=== PATIENT | male | born 1995 | race American Indian/Alaskan Native ===

== ENCOUNTER 2017-05-20 20:47 | Emergency (ER) | payer SELFPAY ==
[2017-05-20 21:13] VITALS: BP 131/74
== END 2017-05-21 00:21 | disposition left against medical advice (07) ==
LOC: DL.ED 20:47
DX: Z53.21 Procedure and treatment not carried out due to patient leaving prior to being seen by health care provider (principal)

== ENCOUNTER 2019-10-14 12:44 | Emergency (ER) | payer OTHER ==
[2019-10-14 13:26] VITALS: BP 134/74; PULSE 91
[2019-10-14] MEDS ORDERED: Sodium Chloride 0.9% 10 ML Syringe FLUSH PRN (13:26)
[2019-10-14] MEDS ORDERED: Clindamycin Phosphate 900 MG in Sodium Chloride 0.9% 100 ML IV ONE (13:27)
[2019-10-14] MEDS ORDERED: Bacitracin Oint 1 GM U/D Packet TOP ONE (13:27)
[2019-10-14] MEDS ORDERED: Lidocaine 1% 30 ML SDV INJECT ONE (13:27)
--- NOTE | 2019-10-14 14:20 | EDM.PDOC ---
<Mya Maxwell - Last Filed: 10/14/19 14:22> ED HPI GENERAL MEDICAL PROBLEM - General Chief Complaint: Skin Complaint Stated Complaint: BOIL ON STOMACH AREA Time Seen by Provider: 10/14/19 13:55 Source of Information: Reports: Patient History Limitations: Reports: No Limitations - History of Present Illness INITIAL COMMENTS - FREE TEXT/NARRATIVE: Patient presents to the ED by private vehicle with concerns of an abscess on his midline suprapubic area. He states that he first started noticing this abscess a couple days ago when it was rubbing against a table at work. He has noted tenderness to the area and surrounding erythema. The patient denies any fevers. He denies any pain with urination, blood in the urine. Onset: Gradual, Unknown/Unsure Location: Reports: Abdomen (midline lower abdomen) Front/Back Body Image: 1 - Abscess to midline suprapubic area Quality: Reports: Sharp Severity: Moderate Improves with: Reports: None Worsens with: Reports: None Associated Symptoms: Reports: No Other Symptoms Suprapubic Pain Score (Numeric/FACES): 8 - Related Data Allergies Allergy/AdvReac Type Severity Reaction Status Date / Time amoxicillin Allergy Rash Verified 10/14/19 13:25 cephalexin monohydrate Allergy Rash Verified 10/14/19 13:25 [From Keflex] Home Meds: Home Meds . [Unable to Verify Home Med List] 10/14/19 [History] Past Medical History Cardiovascular History: Reports: Heart Murmur Musculoskeletal History: Reports: Fracture Endocrine/Metabolic History: Reports: Diabetes, Type II - Past Surgical History HEENT Surgical History: Reports: Tonsillectomy GI Surgical History: Reports: EGD Social & Family History - Tobacco Use Smoking Status *Q: Current Every Day Smoker Years of Tobacco use: 10 Packs/Tins Daily: 0.5 - Recreational Drug Use Recreational Drug Use: No ED ROS GENERAL - Review of Systems Review Of Systems: See Below Constitutional: Denies: Fever, Chills Endocrine: Denies: Fatigue GI/Abdominal: Reports: Abdominal Pain. Denies: Bloody Stool, Constipation, Diarrhea : Denies: Discharge, Dysuria, Hematuria, Pain Neurological: Denies: Dizziness ED EXAM, SKIN/RASH Exam: See Below Exam Limited By: No Limitations General Appearance: Alert, No Apparent Distress Head: Atraumatic, Normocephalic Respiratory/Chest: No Respiratory Distress, Lungs Clear, Normal Breath Sounds Cardiovascular: Normal Peripheral Pulses, Regular Rate, Rhythm, No Murmur GI/Abdominal: Normal Bowel Sounds, Soft, Non-Tender, Distended, Guarding (Male) Exam: Other (suprapubic abscess approximately 4X3 cm in size, approximately 10-12 cm of surrounding errythema) ED SKIN PROCEDURES - I&D Site: midline suprapubic Skin Prep: Providone-Iodine (Betadine), Sterile Drape Local Anesthesia: Lidocaine: 1% Plain Local Anesthetic Volume: Other (20cc) Area Incised With: 11 Blade Drainage: Purulent, Large Amount Probed to Break Up Loculations: Yes Packed With: 1/2 in. Iodoform Sterile Dressinx4(s) Complications: No Progress/Comments: Patient was draped in a sterile fashion. Skin was cleansed with providone iodine. A 3 cm incision was made down to the subcutaneous tissue. Loculations were broken up by undermining in all directions of the abscess. The abscess was tracked approximately 2 cm superior, 1/2 cm bilaterally and 1 cm inferior from the incision. Copious amounts of purulent, foul smelling fluid was extracted. The pocket was cleansed with 40 ccs normal saline. Iodoform gauze was packed into the wound and 4X4s were applied over the wound. Margins of surrounding erythema were marked with a marking pen. An additional 2X2 cm fluctuant errythematous area was noted on his right groin. This was not addressed but was marked with a marking pen. The patient tolerated the procedure well. Course - Vital Signs Last Recorded V/S: Last Vital Signs Temp 97.5 F 10/14/19 13:22 Pulse 91 10/14/19 13:22 Resp 16 10/14/19 13:22 BP 134/74 10/14/19 13:22 Pulse Ox 97 10/14/19 13:22 - Orders/Labs/Meds Orders: Active Orders 24 hr Category Date Time Status Peripheral IV Care [RC] . DIRECTED Care 10/14/19 13:27 Active CULTURE WOUND [RM] Stat Lab 10/14/19 14:10 Received Sodium Chloride 0.9% [Saline Flush] Med 10/14/19 13:26 Active 10 ml FLUSH ASDIRECTED PRN Vancomycin 1,500 mg Med 10/14/19 14:28 Active Sodium Chloride 0.9% [Normal Saline] 500 ml IV ONETIME Peripheral IV Insertion Adult [OM.PC] Stat Oth 10/14/19 13:26 Ordered Medication Orders Vancomycin HCl 1,500 mg/ (Sodium Chloride) 500 mls @ 333.333 mls/hr IV ONETIME ONE Stop: 10/14/19 15:57 Last Admin: 10/14/19 14:37 Dose: 333.333 mls/hr Sodium Chloride (Saline Flush) 10 ml FLUSH ASDIRECTED PRN PRN Reason: Keep Vein Open Last Admin: 10/14/19 13:40 Dose: 10 ml Labs: Laboratory Tests 10/14/19 Range/Units 13:37 WBC 12.0 H (5.0-10.0) 10^3/uL RBC 4.99 (4.6-6.2) 10^6/uL Hgb 15.2 (14.0-18.0) g/dL Hct 42.6 (40.0-54.0) % MCV 85.4 (80-100) fL MCH 30.5 (27.0-34.0) pg MCHC 35.7 H (33.0-35.0) g/dL Plt Count 249 (150-450) 10^3/uL Neut % (Auto) 69.3 (42.2-75.2) % Lymph % (Auto) 20.6 (20.5-50.1) % [place] % (Auto) 6.6 (2-8) % Eos % (Auto) 2.9 (1.0-3.0) % Baso % (Auto) 0.6 (0.0-1.0) % Meds: Medications Generic Name Dose Route Start Last Admin Trade Name Freq PRN Reason Stop Dose Admin Vancomycin HCl 1,500 mg/ 500 mls @ 333.333 mls/hr 10/14/19 14:28 10/14/19 14: 37 Sodium Chloride IV 10/14/19 15:57 333.333 mls/hr ONETIME ONE Administration Sodium Chloride 10 ml 10/14/19 13:26 10/14/19 13:40 Saline Flush FLUSH 10 ml ASDIRECTED PRN Administration Keep Vein Open Discontinued Medications Generic Name Dose Route Start Last Admin Trade Name Liliane PRN Reason Stop Dose Admin Bacitracin 1 dose 10/14/19 13:27 10/14/19 13:41 Bacitracin Oint 1 Gm TOP 10/14/19 13:28 1 dose ONETIME ONE Administration Clindamycin Phosphate 900 mg/ 106 mls @ 200 mls/hr 10/14/19 13:27 10/14/19 13 :41 Sodium Chloride IV 10/14/19 13:58 200 mls/hr ONETIME ONE Administration Lidocaine HCl 30 ml 10/14/19 13:27 10/14/19 13:40 Xylocaine-Mpf 1% INJECT 10/14/19 13:28 30 ml ONETIME ONE Administration Departure - Departure Time of Disposition: 16:20 Disposition: Home, Self-Care 01 Condition: Good Clinical Impression: Abscess Cellulitis Qualifiers: Site of cellulitis: trunk Site of cellulitis of trunk: groin Qualified Code(s) : L03.314 - Cellulitis of groin - Discharge Information *PRESCRIPTION DRUG MONITORING PROGRAM REVIEWED*: Not Applicable *COPY OF PRESCRIPTION DRUG MONITORING REPORT IN PATIENT LUPE: Not Applicable Instructions: Skin Abscess, Cellulitis, Adult, Wound Packing Forms: ED Department Discharge Additional Instructions: Rx: Clindamycin, Bactrim DS Remove gauze strip from wound each 24 hours and repack with provided gauze strip. Utilize q-tip to pack gauze into wound. Follow-up with primary care provider or at walk in clinic on 10/18/2019 for recheck. Return to the ED if you develop a fever, experience increased drainage from the wound. Sepsis Event Note - Evaluation Sepsis Screening Result: No Definite Risk - Focused Exam Vital Signs: Vital Signs Temp Pulse Resp BP Pulse Ox 10/14/19 13:22 97.5 F 91 16 134/74 97 Date Exam was Performed: 10/14/19 Time Exam was Performed: 14:22 - My Orders Last 24 Hours: My Active Orders 10/14/19 13:26 Sodium Chloride 0.9% [Saline Flush] 10 ml FLUSH ASDIRECTED PRN Peripheral IV Insertion Adult [OM.PC] Stat 10/14/19 13:27 Peripheral IV Care [RC] . DIRECTED 10/14/19 14:10 CULTURE WOUND [RM] Stat 10/14/19 14:28 Vancomycin 1,500 mg Sodium Chloride 0.9% [Normal Saline] 500 ml IV ONETIME - Assessment/Plan Last 24 Hours: My Active Orders 10/14/19 13:26 Sodium Chloride 0.9% [Saline Flush] 10 ml FLUSH ASDIRECTED PRN Peripheral IV Insertion Adult [OM.PC] Stat 10/14/19 13:27 Peripheral IV Care [RC] . DIRECTED 10/14/19 14:10 CULTURE WOUND [RM] Stat 10/14/19 14:28 Vancomycin 1,500 mg Sodium Chloride 0.9% [Normal Saline] 500 ml IV ONETIME <Stan Bledsoe - Last Filed: 10/14/19 14:55> Course - Re-Assessments/Exams Free Text/Narrative Re-Assessment/Exam: 10/14/19 14:54 I personally performed or re-performed the physical examination and medical decision making. I have verified all student documentation or findings, including history, physical exam and/or medical decision making. Sepsis Event Note - Focused Exam Date Exam was Performed: 10/14/19 Time Exam was Performed: 14:54
== END 2019-10-14 16:29 | disposition home or self-care (01) ==
LOC: DL.ED 12:44
DX: L02.214 Cutaneous abscess of groin (principal); L03.314 Cellulitis of groin; E11.9 Type 2 diabetes mellitus without complications; F17.210 Nicotine dependence, cigarettes, uncomplicated; Z98.890 Other specified postprocedural states; Z88.1 Allergy status to other antibiotic agents
CPT/HCPCS: 10061; 36415; 85025; 87070; 96365; 96367; 99283; J2001; J3370; J3490; J7040; J7050; 87077; 87186

== ENCOUNTER 2020-03-08 13:36 | Emergency (ER) | payer OTHER ==
[2020-03-08 13:47] VITALS: BP 145/89; PULSE 89
[2020-03-08 14:27] LABS: ANION GAP 14.6 mEq/L (7-13); CHLORIDE,CL 105 mmol/L (98-107); SODIUM,NA 141 mmol/L (136-145)
[2020-03-08] MEDS ORDERED: Acetaminophen 325 MG Tab PO ONE (14:52)
--- NOTE | 2020-03-08 14:59 | EDM.PDOC ---
ED HPI GENERAL MEDICAL PROBLEM - General Chief Complaint: Chest Pain Stated Complaint: [id number] Chest pains Time Seen by Provider: 03/08/20 14:53 Source of Information: Reports: Patient History Limitations: Reports: No Limitations - History of Present Illness INITIAL COMMENTS - FREE TEXT/NARRATIVE: This 24 yo male patient reports to the ED with left upper chest pain radiating to his left arm. The patient reports he has been having similar symptoms for the past 2 years, but also reports he has had different episodes of chest pain for his whole life. The patient reports he has been seen in [place] and [place]. The patient reports when he was seen in [place], he was told that he had a heart valve that was not closing appropriately. The patient reports no further assessment has been done. The patient states he has not taken anything medications for his current symptoms. Onset: Unknown/Unsure (2 years) Duration: Constant Location: Reports: Chest (left upper chest) Quality: Reports: Ache, Sharp Severity: Moderate Improves with: Reports: None Worsens with: Reports: None Context: Reports: Other Associated Symptoms: Reports: Chest Pain (left upper chest pain) Treatments CREDIT OFFICE MANAGER: Denies: Acetaminophen, NSAIDS - Related Data Allergies Allergy/AdvReac Type Severity Reaction Status Date / Time amoxicillin Allergy Rash Verified 03/08/20 13:47 cephalexin monohydrate Allergy Rash Verified 03/08/20 13:47 [From Keflex] Home Meds: Home Meds Escitalopram Oxalate 20 mg PO DAILY 03/08/20 [History] Methylphenidate HCl [Methylphenidate ER] 18 mg PO DAILY 03/08/20 [History] traZODone HCl [Trazodone HCl] 50 mg PO BEDTIME 03/08/20 [History] Past Medical History Cardiovascular History: Reports: Heart Murmur, Hypertension Genitourinary History: Reports: None Musculoskeletal History: Reports: Fracture Neurological History: Reports: None Psychiatric History: Reports: None Endocrine/Metabolic History: Reports: Diabetes, Type II Hematologic History: Reports: None Immunologic History: Reports: None Oncologic (Cancer) History: Reports: None - Past Surgical History HEENT Surgical History: Reports: Tonsillectomy GI Surgical History: Reports: EGD Social & Family History - Tobacco Use Smoking Status *Q: Current Every Day Smoker Years of Tobacco use: 5 Packs/Tins Daily: 1 - Caffeine Use Caffeine Use: Reports: Energy Drinks, Soda - Recreational Drug Use Recreational Drug Use: No ED ROS GENERAL - Review of Systems Review Of Systems: Comprehensive ROS is negative, except as noted in HPI. ED EXAM, GENERAL - Physical Exam Exam: See Below Exam Limited By: No Limitations General Appearance: Alert, WD/WN, Mild Distress Eye Exam: Bilateral Eye: EOMI, Normal Inspection, PERRL Ears: Normal External Exam, Normal Canal, Hearing Grossly Normal, Normal TMs Nose: Normal Inspection, Normal Mucosa, No Blood Throat/Mouth: Normal Inspection, Normal Lips, Normal Teeth, Normal Gums, Normal Oropharynx, Normal Voice, No Airway Compromise Head: Atraumatic, Normocephalic Neck: Normal Inspection, Supple, Non-Tender, Full Range of Motion Respiratory/Chest: No Respiratory Distress, Lungs Clear, Normal Breath Sounds, No Accessory Muscle Use, Chest Non-Tender Cardiovascular: Normal Peripheral Pulses, Regular Rate, Rhythm, No Edema, No Gallop, No JVD, No Murmur, No Rub GI/Abdominal: Normal Bowel Sounds, Soft, Non-Tender, No Organomegaly, No D istention, No Abnormal Bruit, No Mass (Male) Exam: Deferred Rectal (Males) Exam: Deferred Back Exam: Normal Inspection, Full Range of Motion, NT Extremities: Normal Inspection, Normal Range of Motion, Non-Tender, Normal Capillary Refill, No Pedal Edema Neurological: Alert, Oriented, CN II-XII Intact, Normal Cognition, Normal Gait, Normal Reflexes, No Motor/Sensory Deficits Psychiatric: Normal Affect, Normal Mood Skin Exam: Warm, Dry, Intact, Normal Color, No Rash Lymphatic: No Adenopathy Course - Vital Signs Last Recorded V/S: Last Vital Signs Temp 36.7 C 03/08/20 13:45 Pulse 89 03/08/20 13:45 Resp 24 H 03/08/20 13:45 BP 145/89 H 03/08/20 13:45 Pulse Ox 99 03/08/20 13:45 - Orders/Labs/Meds Orders: Active Orders 24 hr Category Date Time Status EKG Documentation Completion [RC] STAT Care 03/08/20 13:38 Ordered DRUG SCREEN URINE BIORAD [URCHEM] Stat Lab 03/08/20 13:38 Ordered UA RFX JOYA AND CULT IF INDIC [URIN] Urgent Lab 03/08/20 13:38 Ordered Acetaminophen [Tylenol] Med 03/08/20 14:52 Once 650 mg PO NOW ONE Labs: Laboratory Tests 03/08/20 03/08/20 Range/Units 13:55 13:55 WBC 11.4 H (5.0-10.0) 10^3/uL RBC 5.09 (4.6-6.2) 10^6/uL Hgb 15.5 (14.0-18.0) g/dL Hct 44.2 (40.0-54.0) % MCV 86.8 (80-100) fL MCH 30.5 (27.0-34.0) pg MCHC 35.1 H (33.0-35.0) g/dL Plt Count 310 (150-450) 10^3/uL Neut % (Auto) 69.8 (42.2-75.2) % Lymph % (Auto) 20.2 L (20.5-50.1) % [place] % (Auto) 4.7 (2-8) % Eos % (Auto) 4.2 H (1.0-3.0) % Baso % (Auto) 1.1 H (0.0-1.0) % Sodium 141 (136-145) mmol/L Potassium 3.6 (3.5-5.1) mmol/L Chloride 105 (98-107) mmol/L Carbon Dioxide 25 (21-32) mmol/L Anion Gap 14.6 H (7-13) mEq/L BUN 9 (7-18) mg/dL Creatinine 0.90 (0.70-1.30) mg/dL Est Cr Clr Drug Dosing 130.68 mL/min Estimated GFR (MDRD) > 60 BUN/Creatinine Ratio 10.0 (No establ ref range) Glucose 139 H (74-99) mg/dL Calcium 8.6 (8.5-10.1) mg/dL Total Bilirubin 0.4 (0.2-1.0) mg/dL AST 33 (15-37) U/L ALT 84 H (16-63) U/L Alkaline Phosphatase 85 (46-116) U/L Troponin I < 0.017 (0.000-0.056) ng/mL Total Protein 7.9 (6.4-8.2) g/dL Albumin 4.0 (3.4-5.0) g/dL Globulin 3.9 Albumin/Globulin Ratio 1.0 Departure - Departure Time of Disposition: 15:01 Disposition: Home, Self-Care 01 Condition: Fair Clinical Impression: Nonspecific chest pain Instructions: Nonspecific Chest Pain, Adult, [id number] Care Plan Goals: The patient was advised of the examination, lab and EKG results during the visit. The patient was given an oral dose of Tylenol during the visit. The patient was encouraged to follow-up with his primary care facility for continued evaluation and further management. The patient may take Tylenol as directed for temporary symptom relief. If the patient has any additional symptoms or concerns, the patient should either return to the emergency department or visit his primary care facility. Sepsis Event Note (ED) - Evaluation Sepsis Screening Result: No Definite Risk - Focused Exam Vital Signs: Vital Signs Temp Pulse Resp BP Pulse Ox 03/08/20 13:45 36.7 C 89 24 H 145/89 H 99 - My Orders Last 24 Hours: My Active Orders 03/08/20 13:38 EKG Documentation Completion [RC] STAT DRUG SCREEN URINE BIORAD [URCHEM] Stat UA RFX JOYA AND CULT IF INDIC [URIN] Urgent 03/08/20 14:52 Acetaminophen [Tylenol] 650 mg PO NOW ONE - Assessment/Plan Last 24 Hours: My Active Orders 03/08/20 13:38 EKG Documentation Completion [RC] STAT DRUG SCREEN URINE BIORAD [URCHEM] Stat UA RFX JOYA AND CULT IF INDIC [URIN] Urgent 03/08/20 14:52 Acetaminophen [Tylenol] 650 mg PO NOW ONE
== END 2020-03-08 15:13 | disposition home or self-care (01) ==
LOC: DL.ED 13:36
DX: R07.9 Chest pain, unspecified (principal); I10 Essential (primary) hypertension; E11.9 Type 2 diabetes mellitus without complications; F17.210 Nicotine dependence, cigarettes, uncomplicated; Z79.899 Other long term (current) drug therapy; Z88.1 Allergy status to other antibiotic agents
CPT/HCPCS: 36415; 80053; 82962; 84484; 85025; 93005; 99285; A9270; 99283

== ENCOUNTER 2022-12-02 01:09 | Emergency (ER) | payer BC, OTHER ==
[2022-12-02 01:26] VITALS: BP 150/99; PULSE 86
[2022-12-02] MEDS: Bupivacaine 0.25% 10 ML SDV INJECT ONE (01:28)
[2022-12-02] MEDS: Clindamycin HCl 150 MG Cap PO ONE (01:28)
== END 2022-12-02 02:09 | disposition home or self-care (01) ==
LOC: DL.ED 01:09
DX: K04.7 Periapical abscess without sinus (principal); K03.81 Cracked tooth; K02.9 Dental caries, unspecified; E11.9 Type 2 diabetes mellitus without complications; F17.210 Nicotine dependence, cigarettes, uncomplicated; E66.9 Obesity, unspecified; Z68.30 Body mass index [BMI] 30.0-30.9, adult; Z88.0 Allergy status to penicillin; Z88.1 Allergy status to other antibiotic agents; Z79.84 Long term (current) use of oral hypoglycemic drugs; Z79.899 Other long term (current) drug therapy
CPT/HCPCS: 99282; A9270-GY; J3490

== ENCOUNTER 2022-12-03 09:38 | Inpatient (IN) | payer BC ==
[2022-12-03] MEDS ORDERED: Sodium Chloride 0.9% 1,000 ML IV ONE (09:51)
[2022-12-03] MEDS ORDERED: VANCOmycin 1.5 GM/300 ML 1.5 GM in Premix Bag 1 BAG IV SCH (10:15)
[2022-12-03] MEDS ORDERED: VANCOmycin 1.5 GM/300 ML 1.5 GM in Premix Bag 1 BAG IV ONE (10:15)
[2022-12-03] MEDS: Sodium Chloride 0.9% 10 ML Syringe FLUSH PRN (10:26)
[2022-12-03] MEDS ORDERED: Magnesium Hydroxide 400 MG/5 ML Susp 30 ML Cup PO PRN (11:23)
[2022-12-03] MEDS ORDERED: HYDROmorphone 0.5 MG/0.5 ML Syringe IVPUSH PRN (11:23)
[2022-12-03] MEDS ORDERED: Polyethylene Glycol 3350 Powder 17 GM Packet PO PRN (11:23)
[2022-12-03] MEDS ORDERED: Ondansetron 4 MG/2 ML SDV IVPUSH PRN (11:23)
[2022-12-03] MEDS ORDERED: Albuterol/Ipratropium 3.0-0.5 MG/3 ML Neb Soln NEB PRN (11:23)
[2022-12-03] MEDS ORDERED: Acetaminophen 325 MG Tab PO PRN (11:23)
[2022-12-03] MEDS ORDERED: Acetaminophen/HYDROcodone 325-5 MG Tab PO PRN (11:23)
[2022-12-03] MEDS ORDERED: Glucagon,Human Recombinant 1 MG Vial IM PRN (11:33)
[2022-12-03] MEDS ORDERED: 50% Dextrose in Water 50 ML Syringe IVPUSH PRN (11:33)
[2022-12-03] MEDS ORDERED: hydrALAZINE 20 MG/ML SDV IVPUSH PRN (11:35)
[2022-12-03] MEDS ORDERED: Famotidine 20 MG/2 ML SDV IVPUSH ONE (12:00)
[2022-12-03] MEDS ORDERED: Dexamethasone 4 MG/ML SDV IVPUSH ONE (12:00)
[2022-12-03] MEDS ORDERED: diphenhydrAMINE 50 MG/ML SDV IVPUSH ONE (12:00)
[2022-12-03] MEDS: Insulin Lispro 100 Units/ML 3 ML Vial SUBCUT SCH ×2 (12:10→17:03)
[2022-12-03] MEDS: Clindamycin in 0.9 % Sod Chlor 900 MG in Premix Bag 1 BAG IV SCH ×6 (12:10→23:41)
[2022-12-03] MEDS ORDERED: cefTRIAXone 2 GM Vial IVPUSH ONE (14:00)
[2022-12-03] MEDS: Ketorolac 30 MG/ML SDV IVPUSH PRN (14:12)
[2022-12-03] MEDS: Naproxen 250 MG Tab PO SCH (20:24)
[2022-12-03] MEDS ORDERED: Non-Formulary Medication 1 Each PO SCH (21:00)
[2022-12-03] MEDS ORDERED: Temazepam 15 MG Cap PO PRN (21:00)
[2022-12-04] MEDS: Clindamycin in 0.9 % Sod Chlor 900 MG in Premix Bag 1 BAG IV SCH ×6 (05:47→18:08)
[2022-12-04 07:48] LABS: ANION GAP 11.7 mEq/L (7-13)
[2022-12-04 08:54] LABS: HEMOGLOBIN A1C 7.4 % (<5.7)
[2022-12-04] MEDS: Naproxen 250 MG Tab PO SCH ×2 (08:59→21:21)
[2022-12-04] MEDS: Multivitamin Tab PO SCH (08:59)
[2022-12-04] MEDS: Insulin Lispro 100 Units/ML 3 ML Vial SUBCUT SCH ×3 (09:00→17:41)
[2022-12-04] MEDS: Losartan 25 MG Tab PO SCH (09:00)
[2022-12-04] MEDS: cefTRIAXone 2 GM Vial IVPUSH SCH (09:01)
[2022-12-04] MEDS: Ketorolac 30 MG/ML SDV IVPUSH PRN ×2 (09:14→17:47)
[2022-12-04] MEDS ORDERED: Saccharomyces Boulardii (Probiotic) 250 MG Cap PO ONE (12:00)
[2022-12-04] MEDS: Sodium Chloride 0.9% 10 ML Syringe FLUSH PRN ×2 (17:46→17:51)
[2022-12-04] MEDS ORDERED: oxyCODONE ER 20 MG TAB.ER PO ONE (17:58)
[2022-12-04] MEDS ORDERED: Dexamethasone 4 MG Tab PO ONE (21:00)
[2022-12-04] MEDS: Saccharomyces Boulardii (Probiotic) 250 MG Cap PO SCH (21:21)
[2022-12-04] MEDS: Famotidine 20 MG Tab PO SCH (21:21)
[2022-12-05] MEDS: Ketorolac 30 MG/ML SDV IVPUSH PRN ×3 (00:13→15:00)
[2022-12-05] MEDS: Clindamycin in 0.9 % Sod Chlor 900 MG in Premix Bag 1 BAG IV SCH ×6 (00:14→11:47)
[2022-12-05] MEDS: Insulin Lispro 100 Units/ML 3 ML Vial SUBCUT SCH ×2 (07:53→11:51)
[2022-12-05] MEDS: Famotidine 20 MG Tab PO SCH (08:01)
[2022-12-05] MEDS: Multivitamin Tab PO SCH (08:02)
[2022-12-05] MEDS: Losartan 25 MG Tab PO SCH (08:02)
[2022-12-05] MEDS: Saccharomyces Boulardii (Probiotic) 250 MG Cap PO SCH (08:02)
[2022-12-05] MEDS: Naproxen 250 MG Tab PO SCH (08:02)
[2022-12-05] MEDS: cefTRIAXone 2 GM Vial IVPUSH SCH (08:04)
[2022-12-05] MEDS ORDERED: Iopamidol 612 MG/ML 100 ML Bottle IVPUSH ONE (11:31)
[2022-12-05 11:48] VITALS: BP 128/78; PULSE 80
[2022-12-05] MEDS ORDERED: oxyCODONE ER 20 MG TAB.ER PO ONE (14:55)
== END 2022-12-05 15:18 | DRG 383 ==
LOC: DL.ED 09:38 → DL.MS 10:50 → UNDOADMIN 11:02 → DL.MS 11:02
PROVIDERS: ADMIT Internal Medicine; ATTEND Internal Medicine
DX: L03.211 Cellulitis of face (principal); I10 Essential (primary) hypertension; F41.9 Anxiety disorder, unspecified; F32.A Depression, unspecified; F90.9 Attention-deficit hyperactivity disorder, unspecified type; E66.9 Obesity, unspecified; E11.9 Type 2 diabetes mellitus without complications; F17.210 Nicotine dependence, cigarettes, uncomplicated; H05.012 Cellulitis of left orbit; M27.2 Inflammatory conditions of jaws; K04.7 Periapical abscess without sinus; H91.90 Unspecified hearing loss, unspecified ear; E11.65 Type 2 diabetes mellitus with hyperglycemia; Z88.0 Allergy status to penicillin; Z68.37 Body mass index [BMI] 37.0-37.9, adult; Z91.011 Allergy to milk products
CPT/HCPCS: 36415; 70486; 70487; 80053; 82947; 83036; 83605; 83735; 84145; 85025; 86140; 87040; 99284; A9270-GY; J0696; J1100; J1200; J1815-GY; J1885; J2405; J3370; J3490; J7030; J8540; Q9967

== ENCOUNTER 2023-09-02 18:09 | Emergency (ER) | payer BC, OTHER ==
[2023-09-02] MEDS ORDERED: Sodium Chloride 0.9% 10 ML Syringe FLUSH PRN (18:12)
[2023-09-02 18:29] VITALS: BP 132/75; PULSE 80
[2023-09-02 18:29] LABS: BASOPHILS PERCENT AUTO 0.6 % (0.0-1.0); EOSINOPHILS PERCENT AUTO 4.1 % (1.0-3.0); HEMATOCRIT 41.2 % (40.0-54.0); HEMOGLOBIN 14.3 g/dL (14.0-18.0); LYMPHOCYTES PERCENT AUTO 31.8 % (20.5-50.1); MEAN CORPUSCULAR HEMOGLOBIN 30.8 pg (27.0-34.0); MEAN CORPUSCULAR HGB CONC 34.7 g/dL (33.0-35.0); MEAN CORPUSCULAR VOLUME 88.6 fL (80-100); MONOCYTES PERCENT AUTO 5.2 % (2-8); NEUTROPHILS PERCENT AUTO 58.3 % (42.2-75.2); PLATELET COUNT,PLT 254 10^3/uL (150-450); RED BLOOD CELL COUNT 4.65 10^6/uL (4.6-6.2); WHITE BLOOD CELL COUNT,WBC 10.7 10^3/uL (5.0-10.0)
[2023-09-02 18:50] LABS: PROTHROMBIN TIME 9.9 SEC (9.0-12.0); PTT,PARTIAL THROMBOPLSTIN TIME 26.4 SEC (22.0-34.0)
[2023-09-02 18:53] LABS: A/G RATIO 1.2; ALANINE AMINOTRANSFERASE,ALT 41 U/L (16-63); ALKALINE PHOSPHATASE 86 U/L (46-116); ANION GAP 13.8 mEq/L (7-13); ASPARTATE AMNIOTRANSFERASE,AST 13 U/L (15-37); BILIRUBIN TOTAL 0.3 mg/dL (0.2-1.0); BLOOD UREA NITROGEN,BUN 21 mg/dL (7-18); BUN/CREATININE RATIO 21.6 (No establ ref range); CALCIUM 8.6 mg/dL (8.5-10.1); CARBON DIOXIDE,CO2 27 mmol/L (21-32); CHLORIDE,CL 105 mmol/L (98-107); CREATININE 0.97 mg/dL (0.70-1.30); EST CRCL DRUG DOSING (CG) 117.07 mL/min; ESTIMATED GFR 109 mL/min (>=60); GLUCOSE RANDOM 125 mg/dL (70-99); MAGNESIUM 1.8 mg/dL (1.8-2.4); POTASSIUM,K 3.8 mmol/L (3.5-5.1); PROTEIN TOTAL,TP 7.4 g/dL (6.4-8.2); SODIUM,NA 142 mmol/L (136-145)
[2023-09-02 19:11] LABS: CORONAVIRUS COVID-19 NAA NEGATIVE (NEGATIVE); INFLUENZA A NAA NEGATIVE (NEGATIVE); INFLUENZA B NAA NEGATIVE (NEGATIVE); RESPIRATORY SYNCYTIAL VIR NAA NEGATIVE (NEGATIVE)
[2023-09-02 19:16] LABS: TSH ULTRASENSITIVE 2.43 uIU/mL (0.36-3.74)
[2023-09-02 19:21] LABS: C-REACTIVE PROTEIN < 0.50 ng/dL (<=0.50)
[2023-09-02 19:31] LABS: HEMOGLOBIN A1C 8.2 % (<5.7)
== END 2023-09-02 19:51 | disposition home or self-care (01) ==
LOC: DL.ED 18:09
DX: R07.9 Chest pain, unspecified (principal); F41.9 Anxiety disorder, unspecified; R73.09 Other abnormal glucose; F43.9 Reaction to severe stress, unspecified; I10 Essential (primary) hypertension; E11.9 Type 2 diabetes mellitus without complications; E66.9 Obesity, unspecified; Z88.0 Allergy status to penicillin; Z91.011 Allergy to milk products; Z79.899 Other long term (current) drug therapy; Z68.34 Body mass index [BMI] 34.0-34.9, adult
CPT/HCPCS: 0241U; 36415; 71045; 80053; 82607; 82947; 83036; 83735; 84443; 84484; 85025; 85610; 85730; 86140; 93005; 93010; 99284; 99285; J3490

== ENCOUNTER 2024-09-28 06:50 | Emergency (ER) | payer BC, OTHER ==
[2024-09-28] MEDS ORDERED: Sodium Chloride 0.9% 10 ML Syringe FLUSH PRN (07:07)
[2024-09-28] MEDS: Ondansetron 4 MG/2 ML SDV IVPUSH ONE (07:18)
[2024-09-28] MEDS: Lactated Ringers 1,000 ML IV SCH (07:18)
[2024-09-28 07:22] LABS: BASOPHILS PERCENT AUTO 0.4 % (0.0-1.0); EOSINOPHILS PERCENT AUTO 3.9 % (1.0-3.0); HEMATOCRIT 44.3 % (40.0-54.0); HEMOGLOBIN 14.8 g/dL (14.0-18.0); LYMPHOCYTES PERCENT AUTO 21.6 % (20.5-50.1); MEAN CORPUSCULAR HEMOGLOBIN 30.4 pg (27.0-34.0); MEAN CORPUSCULAR HGB CONC 33.4 g/dL (33.0-35.0); MONOCYTES PERCENT AUTO 6.9 % (2-8); NEUTROPHILS PERCENT AUTO 67.2 % (42.2-75.2); PLATELET COUNT,PLT 258 10^3/uL (150-450); RED BLOOD CELL COUNT 4.87 10^6/uL (4.6-6.2); WHITE BLOOD CELL COUNT,WBC 11.6 10^3/uL (5.0-10.0)
[2024-09-28 07:41] LABS: ALBUMIN 3.3 g/dL (3.4-5.0); ANION GAP 13.5 mEq/L (7-13); BILIRUBIN TOTAL 0.3 mg/dL (0.2-1.0); BUN/CREATININE RATIO 18.8 (No establ ref range); C-REACTIVE PROTEIN 1.93 ng/dL (<=0.50); CALCIUM 8.6 mg/dL (8.5-10.1); CREATININE 0.8 mg/dL (0.70-1.30); EST CRCL DRUG DOSING (CG) 140.68 mL/min; MAGNESIUM 1.7 mg/dL (1.8-2.4); POTASSIUM,K 4.5 mmol/L (3.5-5.1); PROTEIN TOTAL,TP 7.1 g/dL (6.4-8.2)
[2024-09-28 07:42] LABS: A/G RATIO 0.87
[2024-09-28] MEDS: Magnesium Sulfate/D5W 1 GM/100 ML BAG IV ONE (07:54)
[2024-09-28 09:01] VITALS: BP 118/73; PULSE 69
== END 2024-09-28 08:46 | disposition home or self-care (01) ==
LOC: DL.ED 06:50
DX: K52.9 Noninfective gastroenteritis and colitis, unspecified (principal); E83.42 Hypomagnesemia; I10 Essential (primary) hypertension; E11.9 Type 2 diabetes mellitus without complications; Z88.0 Allergy status to penicillin; Z79.4 Long term (current) use of insulin; Z79.899 Other long term (current) drug therapy
CPT/HCPCS: 36415; 80053; 82947; 83735; 85025; 86140; 87045; 87046; 87428; 87899; 96361; 96365; 96375; 99284; J2405; J3475; J7120